=== PATIENT | male | born 1940 | race Caucasian/White ===

== ENCOUNTER → 2023-05-18 | Outpatient (CLI) | payer MEDICARE ==
[~2023-05-18] VITALS: Ht 180.3 cm; Wt 73.3 kg
[~2023-05-18] MED LIST: APIX5TAB PO; ASPI-999 PO; CALC-308 PO; CHOL100L MC; CITA40TA19 PO; DOCU100P MC; EZET10TA49 PO; FERR325T18 PO; GBPN600T PO; LISI20TA26 PO; MULT-974 PO
== END | disposition home or self-care (01) ==
LOC: PREOP 05:34
PROVIDERS: ATTEND Specialist
DX: Z01.818 Encounter for other preprocedural examination (principal)

== ENCOUNTER 2023-05-25 06:42 | Day surgery (SDC) | payer MEDICARE ==
[~2023-05-25] VITALS: Ht 180.3 cm; Wt 73.3 kg
[2023-05-25] VITALS (11 sets, daily range): BP systolic 114–173; BP diastolic 62–96
[2023-05-25] MEDS ORDERED: LACTATED RINGERS 1,000 ML 1,000 ML IV PRN ×2 (07:15)
[2023-05-25] MEDS ORDERED: LIDOCAINE PF 2% 5 ML VIAL ONE (08:05)
[2023-05-25] MEDS ORDERED: proPOfol INJECTION 200 MG/20 ML VIAL IV ONE (08:05)
[2023-05-25] MEDS ORDERED: ONDANSETRON INJECTION 4 MG/2 ML (SDV) ONE (08:05)
[2023-05-25] MEDS ORDERED: SEVOFLURANE (ULTANE) 15 ML INHAL SOLN ONE (08:05)
[2023-05-25] MEDS ORDERED: fentaNYL INJECTION 100 MCG/2 ML VIAL ONE (08:05)
[2023-05-25] MEDS ORDERED: dexAMETHasone INJ 10 MG/ML 1 ML VIAL ONE (08:05)
[2023-05-25] MEDS ORDERED: GEMCITABINE 1 GM/NS 50 ML X 2 SYRINGES IR ONE ×2 (09:00)
--- NOTE | 2023-05-25 09:01 | Progress Note-Pre Operative ---
Pre-Operative Progress Note Date of Available H&P: May 24, 2023 Date H&P Reviewed: May 25, 2023 Time H&P Reviewed: 09:00 History & Physical: H&P Reviewed, No changes noted Pre-Operative Diagnosis: recurrent bladder tumors Albert MCCARTHY MD May 25, 2023 09:01
[2023-05-25] MEDS ORDERED: GLYCOPYRROLATE INJ 0.2 MG/ML 2 ML VIAL ONE (09:21)
--- NOTE | 2023-05-25 09:38 | Anesthesia-General Post-Op ---
General Patient Condition Mental Status/LOC: Same as Preop Cardiovascular: Satisfactory Nausea/Vomiting: Absent Respiratory: Satisfactory Pain: Controlled Complications: Absent Post Op Complications Complications None Follow Up Care/Instructions Patient Instructions None needed. Anesthesia/Patient Condition Patient Condition Patient is doing well, no complaints, stable vital signs, no apparent adverse anesthesia problems. No complications reported per nursing. GARY HOLGUIN CRNA May 25, 2023 09:38
[2023-05-25] MEDS ORDERED: ONDANSETRON INJECTION 4 MG/2 ML (SDV) IVP PRN (09:45)
[2023-05-25] MEDS ORDERED: morphine INJ 10 MG/ML 1ML (SYR OR VIAL) IVP ONE (09:45)
[2023-05-25] MEDS ORDERED: MEPERIDINE INJ 50 MG/ML VIAL IVP ONE (09:45)
--- NOTE | 2023-05-25 18:37 | OPERATIVE REPORT ---
DATE OF SERVICE: 05/25/2023 PREOPERATIVE DIAGNOSIS: Recurrent bladder tumor. POSTOPERATIVE DIAGNOSIS: Recurrent bladder tumor. PROCEDURES PERFORMED: Cystoscopy, transurethral resection of bladder tumor, instillation of intravesical gemcitabine 2 grams. FINDINGS: Three small bladder tumors, largest was 1 cm on the right posterior wall. SPECIMEN: Bladder tumor for pathology. DRAINS: A 20 [place] Velasquez catheter. INDICATIONS FOR SURGERY: Please see history and physical. DESCRIPTION OF PROCEDURE: After informed consent was obtained, a general anesthetic was administered. The patient received IV Levaquin. He was then prepped and draped in dorsal lithotomy position. Cystoscopy with a 21-[place] cystoscope sheath and 30 and 70 degree lens was performed. Urethra was without strictures. Prostatic urethra showed lateral hypertrophy. Panendoscopy of bladder revealed normal ureteral orifices. Bladder tumors in the right posterior bladder wall. Blanching of the mucosa consistent with prior radiation, but no stones. Cystoscope was then removed. A 26-[place] continuous flow resectoscope sheath was inserted with visual obturator and 12 degree lens. Obturator was removed. Rivera working element loop electrode bipolar cautery and 12 degree lens were then used to resect the bladder tumors in entirety. Plasma button electrode was used to obtain hemostasis, fulgurated around the bladder tumor sites. All bladder tumor chips were evacuated from the bladder. The resectoscope was removed. A 20 [place] Velaqsuez catheter was placed. Efflux was clear. Two grams of gemcitabine was instilled into the bladder and the catheter clamped. The patient was taken to recovery room having tolerated the procedure well. [ ] will be left indwelling for 2 hours. He will be sent home without a catheter. He will follow up in my office in 3 months for cystoscopy. Job ID: [id number] DocumentID: [id number] Dictated Date: 05/25/2023 10:40:45 Stencil Inspector Date: 05/25/2023 18:35:00 Dictated By: Gaurav MCCARTHY MD
== END 2023-05-25 12:00 | disposition home or self-care (01) ==
LOC: SDC 06:42
PROVIDERS: ATTEND Specialist
DX: C67.9 Malignant neoplasm of bladder, unspecified (principal)
CPT/HCPCS: 87081